=== PATIENT | female | born 1950 | race Caucasian/White ===

== ENCOUNTER 2018-10-11 09:00 | Emergency (ER) | payer OTHER ==
[~2018-10-11] VITALS: Ht 175.3 cm; Wt 68.0 kg
[~2018-10-11 09:00] MED LIST: AMOXICILLIN500 M1 PO; CLONAZEPAM 1 MG1 M1 PO; CYMBALTA30 MG PO; HYDROCODON-ACE1 EAC5 PO; NORCO 5-325 TA1 EACH PO; NORFLEX100 MG PO; PHENERGAN 25 MG25 M1 PO; PREDNISONE 20 M20 MG PO; ULTRAM 50MG TAB50 MG PO; ZYRTEC10 M5 PO; [UNRECOGNIZED DRUG - REMARK]
[2018-10-11] MEDS ORDERED: [UNRECOGNIZED DRUG - OTHER] PO (09:15)
[2018-10-11 09:18] LABS: ABSOLUTE NEUTROPHILS 3.5 thou/uL (1.4-8.2); BASOPHILS 1.4 % (0.0-2.0); EOSINOPHILS 2.4 % (0.0-3.0); HEMATOCRIT 34.7 % (37.0-47.0); HEMOGLOBIN 11.4 gm/dL (12.0-15.0); LYMPHOCYTES 29.8 % (24.0-44.0); MCH 26.6 pg (26.0-34.0); MCV 80.7 fL (80.0-100.0); MONOCYTES 8.3 % (1.0-8.0); PLATELET COUNT 266 thou/uL (150-400); POLYS 58.1 % (36.0-66.0); RDW 15.3 % (10.5-14.5)
[2018-10-11 09:37] LABS: CALCIUM 8.8 mg/dL (8.5-10.1); CREATININE 1.1 mg/dL (0.6-1.0); POTASSIUM 3.6 mmol/L (3.5-5.1)
[2018-10-11 09:42] LABS: ALBUMIN 3.3 g/dL (3.4-5.0); TOTAL BILIRUBIN 0.2 mg/dL (<0.1-1.0); TOTAL PROTEIN 6.4 g/dL (6.4-8.2)
[2018-10-11 11:18] LABS: URINE BILIRUBIN NEGATIVE (Negative); URINE BLOOD NEGATIVE (Negative); URINE CLARITY CLEAR; URINE COLOR YELLOW; URINE GLUCOSE-RANDOM* NEGATIVE (Negative); URINE KETONES NEGATIVE (Negative); URINE LEUKOCYTES-REFLEX 2+ (Negative); URINE NITRITE-REFLEX NEGATIVE (Negative); URINE PROTEIN (DIPSTICK) NEGATIVE (Negative); URINE UROBILINOGEN 0.2 E.U./dl (0.2-1.0)
[2018-10-11 11:28] LABS: SQUAMOUS 0-3 Few /LPF (0-3)
[2018-10-11 11:29] LABS: CASTS None Seen /LPF (None Seen); CRYSTALS None Seen /LPF (None Seen); URINE RBC None Seen /HPF (0-2); URINE WBC-REFLEX 6-15 Few /HPF (0-5)
[2018-10-11 11:30] LABS: BACTERIA-REFLEX 1-9 Few /HPF (None Seen)
[2018-10-11] MEDS ORDERED: KEFLEX500 M1 PO (11:39)
[2018-10-11 12:15] VITALS: BP 136/82
== END 2018-10-11 12:17 | disposition home or self-care (01) ==
LOC: ER 09:00
PROVIDERS: Emergency Medicine
DX: N39.0 Urinary tract infection, site not specified (principal); F32.9 Major depressive disorder, single episode, unspecified; F41.9 Anxiety disorder, unspecified; M19.90 Unspecified osteoarthritis, unspecified site; Z87.01 Personal history of pneumonia (recurrent); Z95.0 Presence of cardiac pacemaker

== ENCOUNTER 2019-02-11 22:19 | Inpatient (IN) | payer OTHER ==
[~2019-02-11] VITALS: Ht 177.8 cm; Wt 63.0 kg
[2019-02-11 22:19] VITALS: BP 126/69
[~2019-02-11 22:19] MED LIST changes: +KEFLEX500 M1 PO; +[UNRECOGNIZED DRUG - OTHER] PO
[2019-02-11 23:34] LABS: ABSOLUTE NEUTROPHILS 6.2 thou/uL (1.4-8.2); BASOPHILS 0.8 % (0.0-2.0); EOSINOPHILS 1.9 % (0.0-3.0); HEMATOCRIT 36.8 % (37.0-47.0); LYMPHOCYTES 19.5 % (24.0-44.0); MCH 26.1 pg (26.0-34.0); MCHC 32.7 g/dL (28.0-37.0); MCV 79.7 fL (80.0-100.0); MONOCYTES 7.8 % (1.0-8.0); PLATELET COUNT 305 thou/uL (150-400); RBC 4.62 mil/uL (4.20-5.00); RDW 14.9 % (10.5-14.5); WBC 10.2 thou/uL (4.0-11.0)
[2019-02-11 23:37] LABS: URINE BILIRUBIN NEGATIVE (Negative); URINE BLOOD NEGATIVE (Negative); URINE CLARITY CLEAR; URINE COLOR YELLOW; URINE GLUCOSE-RANDOM* NEGATIVE (Negative); URINE KETONES NEGATIVE (Negative); URINE NITRITE-REFLEX NEGATIVE (Negative); URINE PROTEIN (DIPSTICK) TRACE (Negative); URINE SPECIFIC GRAVITY 1.025 (1.005-1.035); URINE UROBILINOGEN 0.2 E.U./dl (0.2-1.0)
[2019-02-11 23:38] LABS: ANION GAP 9 mmol/L (7-16); BUN 16 mg/dL (7-18); CALCIUM 9.1 mg/dL (8.5-10.1); CHLORIDE 104 mmol/L (98-107); CO2 27 mmol/L (21-32); CREATININE 1.3 mg/dL (0.6-1.0); GLUCOSE 136 mg/dL (74-106); POTASSIUM 4.1 mmol/L (3.5-5.1); SODIUM 140 mmol/L (136-145)
[2019-02-11 23:43] LABS: URINE LEUKOCYTES-REFLEX 1+ (Negative)
[2019-02-11 23:47] LABS: TROPONIN-I <0.06 ng/mL (<0.06)
[2019-02-11 23:59] LABS: SQUAMOUS 0-3 Few /LPF (0-3)
[2019-02-12] LABS: BACTERIA-REFLEX >30 Many /HPF (None Seen); CRYSTALS None Seen /LPF (None Seen); HYALINE CASTS 0-3 Few /LPF (None Seen); MUCUS 0-3 Light strn/LPF (None Seen); URINE RBC 0-2 Rare /HPF (0-2); WBC CLUMPS Moderate (None Seen)
[2019-02-12 03:25] VITALS: BP 121/67
[2019-02-12] MEDS ORDERED: PROTONIX40 M1 PO (03:33)
[2019-02-12] MEDS ORDERED: RISPERDAL2 MG PO (03:35)
[2019-02-12] MEDS ORDERED: BENZTROPINE MES1 MG PO (03:36)
--- NOTE | 2019-02-12 06:32 | NUR ---
PT ARRIVED TO UNIT APPROX 0320 IN STABLE CONDITION, ADMISSION AND ASSESSMENT COMPLETED. PT ASKED THAT HER DAUGHTER SIGN ALL CONSENTS WHEN SHE COMES IN TODAY; WILL ASK DAY RN TO FOLLOW UP WITH THE DAUGHTER. PT ALERT AND ORIENTED TO SELF, PLACE, AND SITUATION; SLIGHTLY FORGETFUL TO TIME. C/O HEADACHE R/T FALLS, DENIES DIZZINESS OR NAUSEA. DENIES SOB. SKIN INTACT. FALL PRECAUTIONS IN PLACE, SCD'S ON, IV FLUIDS INFUSING. NO OTHER CONCERNS, WILL CONTINUE TO MONITOR.
[2019-02-12 07:44] VITALS: BP 121/72
[2019-02-12 07:47] VITALS: BP 113/78
[2019-02-12 07:49] VITALS: BP 125/70
--- NOTE | 2019-02-12 08:31 | EKG ---
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
--- NOTE | 2019-02-12 10:25 | NUR ---
INITIAL ASSESSMENT: Received consult for placement. SW reviewed chart and spoke with nursing. Pt was admitted from home due to frequent falls/orthostatic hypotension. Therapy ordered to evaluate pt. Will need insurance authorization for SNF placement. ABIODUN met with pt at bedside. Introduced role of SW. Pt is alert/orientated to self and place. Pt states she normally does not use any DME when she ambulates. Pt's dtr had contacted a nursing facility in [place] for placement. Pt is unsure which nursing facility. ABIODUN called pt's dtr, Anne, via phone. Voice mailbox is full. Awaiting therapy evals and discussion with family. SW is following to assist as needed with discharge planning.
[2019-02-12 15:05] VITALS: BP 117/60
--- NOTE | 2019-02-12 17:38 | NUR ---
PT UP WITH PT/OT TO THE BATHROOM AND AROUND THE ROOM. EATING WELL.
[2019-02-12 19:30] VITALS: BP 110/32
[2019-02-13 04:31] VITALS: BP 123/76
--- NOTE | 2019-02-13 06:05 | NUR ---
ASSUMED CARE AT 1900, ASSESSMENT COMPLETED. PT REPORTS HEADACHE TONIGHT, GIVEN BOTH TYLENOL AND IBUPROFEN THIS SHIFT. DENIES NAUSEA, DIZZINESS, OR SOA. FALL PREC IN PLACE, CALLS APPROPRIATELY TO USE BATHROOM. IV FLUIDS INFUSING. NO OTHER CONCERNS, WILL CONTINUE TO MONITOR.
[2019-02-13 06:58] VITALS: BP 130/67
[2019-02-13 07:00] VITALS: BP 108/71
[2019-02-13 07:01] VITALS: BP 136/69
--- NOTE | 2019-02-13 11:14 | 2DMMODE ---
[facility] [place] [place] [address] 2 D/M-MODE ECHOCARDIOGRAM Name: JUAN CORTEZ Room #: 361-P ADM IN M.R.#: [id number] Admission: 02/12/19 Attend Phys: Cee Alfonso MD Discharge: Date of : 46 Date of Service: 02/13/19 1114 Report #: [id number] THIS REPORT FOR: //name// APPROVED REPORT Study performed: 02/13/2019 10:35:10 EXAM: Comprehensive 2D, Doppler, and color-flow Echocardiogram Patient Location: Bedside Room #: 361 Status: routine BSA: 1.79 HR: 71 bpm BP: 136/69 mmHg Rhythm: NSR Other Information Study Quality: Good Indications Hypotension Pacemaker Syncope 2D Dimensions RVDd: 35.63 mm IVSd: 9.32 (7-11mm) LVOT Diam: 22.49 (18-24mm) LVDd: 35.49 mm PWd: 9.14 (7-11mm) Ascending Ao: 29.41 (22-36mm) LVDs: 23.98 (25-40mm) Aortic Root: 29.72 mm IVC: 19.00 mm Volumes Left Atrial Volume (Systole) Single Plane 4CH: 29.39 mL Single Plane 2CH: 39.01 mL LA ESV Index: 24.00 mL/m2 Aortic Valve AoV Peak Russ.: 1.20 m/s AO Peak Gr.: 5.73 mmHg LVOT Max P.34 mmHg LVOT Max V: 0.91 m/s SUSAN Vmax: 3.03 cm2 Mitral Valve E/A Ratio: 1.[address] [facility] [address] [place] [address] 2 D/M-MODE ECHOCARDIOGRAM Name: JUAN CORTEZ Room #: 361-[facility] IN [facility]#: [id number] Admission: 02/12/19 Attend Phys: Cee Alfonso MD Discharge: Date of : 46 Date of Service: 02/13/19 1114 Report #: [id number] MV Decel. Time: 203.90 ms MV E Max Russ.: 0.83 m/s MV A Russ.: 0.57 m/s MV PHT: 59.13 ms IVRT: 92.27 ms Pulmonary Valve PV Peak Russ.: 0.93 m/s PV Peak Gr.: 3.53 mmHg Pulmonary Vein P Vein S: 0.36 m/s P Vein A: 0.29 m/s P Vein D: 0.30 m/s P Vein A Dur.: 133.8 msec P Vein S/D Ratio: 1.20 Tricuspid Valve TR Peak Russ.: 2.45 m/s TR Peak Gr.: 23.98 mmHg PA Pressure: 29.00 mmHg Left Ventricle The left ventricle is normal size. There is normal LV segmental wall motion. There is normal left ventricular wall thickness. Left ventricular systolic function is normal. The left ventricular ejection fraction is within the normal range. LVEF is 60-65%. The left ventricular diastolic function is normal. Right Ventricle The right ventricle is normal size. The right ventricular systolic function is normal. Pacemaker lead is present in the right ventricle. Atria The left atrium size is normal. The right atrium size is normal. Pacemaker lead is present in the right atrium. Aortic Valve The aortic valve is normal in structure. No aortic regurgitation is present. There is no aortic valvular stenosis. Mitral Valve The mitral valve is normal in structure. Trace mitral regurgitation. No evidence of mitral valve stenosis. Tricuspid Valve The tricuspid valve is normal in structure. There is mild tricuspid regurgitation. Estimated PAP 29 mmHg. There is no pulmonary hypertension. [facility] [address] [place] [address] 2 D/M-MODE ECHOCARDIOGRAM Name: JUAN CORTEZ Room #: 361-P ADM IN [facility]#: [id number] Admission: 02/12/19 Attend Phys: Cee Alfonso MD Discharge: Date of : 46 Date of Service: 02/13/19 1114 Report #: [id number] Pulmonic Valve The pulmonary valve is normal in structure. There is no pulmonic valvular regurgitation. Great Vessels The aortic root is normal in size. IVC is normal in size and collapses >50% with inspiration. Pericardium There is no pericardial effusion. <Conclusion> The left ventricle is normal size. LVEF is 60-65%. The left ventricular diastolic function is normal. The right ventricle is normal size. The right ventricular systolic function is normal. Pacemaker lead is present in the right ventricle. The right atrium size is normal. Pacemaker lead is present in the right atrium. The aortic valve is normal in structure. Trace mitral regurgitation. There is mild tricuspid regurgitation. Estimated PAP 29 mmHg. There is no pulmonary hypertension. The aortic root is normal in size. There is no pericardial effusion. <ELECTRONICALLY SIGNED> By: Isma Smith MD, FACC 02/13/19 1114 1114 111 Isma Smith MD, FACC /INF
--- NOTE | 2019-02-13 14:21 | NUR ---
ABIODUN reviewed chart and spoke with nursing and attending physician. Pt is progressing towards goals for discharge. Recommendation made for pt to go to post-acute care. ABIODUN met with pt at bedside to discuss SNF placement. Pt states that she and her dtr have chosen a facility. SW named the four nursing facilities in [place]. Pt is unable to choose which facility. ABIODUN spoke with pt's dtr, Anne, via phone who states they have contacted [facility] for LTC placement. ABIODUN discussed that if [facility] does not have a bed available, would she consider alternate placement in [place]. Pt's dtr agreeable. ABIODUN faxed clinical info to [facility] and spoke with She in admissions, who states she would review info. She states she is unsure if she would accept pt LTC without a Medicaid application being submitted. She will review for possible SNF placement. Awaiting call back at this time. ABIODUN is following to assist as needed with discharge planning.
[2019-02-13 15:41] VITALS: BP 122/65
[2019-02-13 19:50] VITALS: BP 119/63
[2019-02-14] VITALS (7 sets, daily range): BP systolic 108–146; BP diastolic 62–93
--- NOTE | 2019-02-14 06:07 | NUR ---
PATIENT IS ALERT TO TIME AND SELF. PATIENT DENEIS PAIN. PATIENTS LBM WAS THE 11TH. PATIENT IS NSR ON TELE. PATIENT HAS TREMORS. PATIENT HAS TRACE LOWER EDEMA. PATIENT IS PENDING [facility] SENIOR LIVING. CM IS WORKING ON SKILLED PLACEMENT. PATIENT IS RESTING COMFORTABLY IN BED. WCM. PATIENT IS PROGRESSING TO GOALS. UTI IMPROVE WITH ANTIBIOTICS.
--- NOTE | 2019-02-14 13:50 | NUR ---
FALL PRECAUTIONS IN PLACE. PATIENT WILL WAIT FOR STAFF TO ASSIST TO COMMODE. PATIENT FORGETFUL OF HER ABILITY TO AMBULATE AND WILL OFTEN REQUEST TO WALK TO BATHROOM INSTEAD OF COMMODE. UNSTEADY TO WALK TO BATHROOM, USES COMMODE FOR BATHROOM PURPOSES. PATIENT UP TO CHAIR FOR APPROX 3HRS THIS SHIFT. REQUESTED TO RETURN TO BED TO REST AFTER LINENS CHANGED. REFUSED BATH THIS SHIFT. AWAITING POTENTIAL DISCHARGE. DENIES ANY QUESTIONS OR CONCERNS AT THIS TIME. PATIENT PROGRESSING TOWARDS GOALS FOR DISCHARGE.
--- NOTE | 2019-02-14 14:59 | NUR ---
ABIODUN reviewed chart and spoke with nursing and attending physician. Pt is progressing towards goals for discharge. ABIODUN spoke with Marilyn in admissions at [facility], who state they are not able to accept pt. ABIODUN spoke with Shana at [facility], who states they are reviewing pt's info. Need additional therapy notes at this time to submit to pt's insurance. Questions regarding pt's orthostatic hypotension and medications. Will fax additional therapy notes when available. ABIODUN spoke with pt's dtr, Anne, via phone to provide update. ABIODUN is following to assist as needed with discharge planning.
--- NOTE | 2019-02-15 03:26 | NUR ---
patient is alert to self. patient is room air. patient is pending discharge to senior living awaiting acceptance from senior living. patient has stenosis of carotid arteries. patient is on minodrine for bp. blood pressure has been stable. patient is resting comfortably in bed. patient is progressing to goals. wcm.
[2019-02-15 04:02] VITALS: BP 114/76
[2019-02-15 06:02] VITALS: BP 131/77
[2019-02-15 07:17] VITALS: BP 134/84
--- NOTE | 2019-02-15 14:44 | NUR ---
ABIODUN reviewed chart and spoke with nursing and attending physician. Pt is progressing towards goals for discharge. Pt to have pacemaker interrogated today. ABIODUN faxed clinical and therapy updates to [facility] for review and spoke with Tamia in admissions. Will need insurance authorization. ABIODUN attempted to leave message for pt's dtrAnne to provide update. No answer or option to leave voice message. No weekend discharge anticipated. ABIODUN updated pt's nurse and attending physician's CIRCLE BEVELER. ABIODUN is following to assist as needed with discharge planning.
[2019-02-15 16:25] VITALS: BP 137/77
--- NOTE | 2019-02-15 16:27 | NUR ---
[employer] WAS HERE AND INTEROGATED PACEMAKER.
--- NOTE | 2019-02-15 16:28 | NUR ---
MATTI SAYS WE ARE STILL WAITING ON INSURANCE AUTHORIZATION. UPDATED DAUGHTER MAIRA WHEN SHE CALLED. SHE STATES WE SHOULD CALL [phone] TO GET IN TOUCH WITH HER IF WE NEED HER.
[2019-02-15 19:30] VITALS: BP 116/61
--- NOTE | 2019-02-16 03:02 | NUR ---
patient is alert oriented tonight. patient had a pacemaker check yesterday. patient is nsr on tele. patient is up times one with a walker. patients lbm was the 11th. stool softener will be given in am. patient denies pain. patient has a flat affect. shuffled gait. and hx on tremors... patient is resting comfortably in bed. wcm. patient is progressing to goals.
[2019-02-16 03:58] VITALS: BP 120/75
[2019-02-16 07:23] VITALS: BP 143/75
[2019-02-16 12:27] VITALS: BP 126/77
[2019-02-16 16:04] VITALS: BP 129/69
[2019-02-16 19:11] VITALS: BP 98/59
--- NOTE | 2019-02-16 20:14 | NUR ---
PATIENT ALERT AND ORIENTED AND COOPERATIVE WITH PLAN OF CARE. DRAIN FUNCTIONING WITH SEROSANGINOUS FLUID AND STRINGY TISSUE. PATIENT STATES SHE IS IN LAST SEMESTER OF IN LOCAL NURSING S[employer]OL. PATIENT ASKED FOR IV MORPHINE FOR ABDOMINAL PAIN ONCE TODAY. PATIENT UP TO BATHROOM WITH SBA. SEVERAL FAMILY MEMBERS AT BEDSIDE THROUGHOUT THE AFTERNOON.
--- NOTE | 2019-02-16 20:35 | NUR ---
PATIENT ALERT AND ORIENTED WITH POOR APPETITE. SHE NEEDS ENCOURAGEMENT TO EAT AND DRINK. SHE STATES SHES NOT A MORNING PERSON AND DOESN'T USUALLY EAT BREAKFAST. PATIENT IS ABLE TO WALK TO BATHROOM WITH WALKER AND MIN ASSIST. PATIENT REFUSED TO SIT IN RECLINER CHAIR AFTER SEVERAL OFFERS. SHE ATTEMPTED TO CALL DAUGHTER ON THE PHONE BUT WAS UNABLE TO REACH DAUGHTER.
[2019-02-17 04:02] VITALS: BP 156/77
--- NOTE | 2019-02-17 06:35 | NUR ---
PT A/0X4, WITH FLAT EFFECT. FOLLOWING POC WITH IVPB ANTIBIOTICS. ONLY COMPLAINT WAS TO CLOSE PT ROOM DOOR. FALL PRECAUTIONS IN PLACE. PT AMBULATES X1 WITH WALKER. EVENING BP MEDICATION WAS W/H DUE TO SOFT BP'S. THIS AM PRESSURES ARE BACK IN NORMAL RANGE AND WILL GIVE 0700 DOSE OF MIDODRINE. HOURLY ROUNDING.
[2019-02-17 07:41] VITALS: BP 109/71
[2019-02-17 15:25] VITALS: BP 153/82
--- NOTE | 2019-02-17 18:19 | NUR ---
ASSUMED CARE AT SHIFT CHANGE, ALERT AND ORIENTED X4 AND FRGETFUL. DENIES ANY DISCOMFORT, VSS AM, AND BP @ 152/82 AT 1615. PROGRESSING TOWARD GOALS. PATIENT DAUGHTER CALLED REQUESTED PER PATIENT, AND CALL RETURN RECIEVED. PLAN DISCHARGE PATIENT TOMORROW.
[2019-02-17 20:30] VITALS: BP 130/83
[2019-02-18 04:55] VITALS: BP 132/77
[2019-02-18 07:52] VITALS: BP 153/73
--- NOTE | 2019-02-18 11:57 | NUR ---
[facility] can't take patient, dp sending referral to [facility] fax [phone]. Asked to if they can accept to please submit for authorization. Patient to discharge today from hospital. Once fax confirmation comes through, dp will call facility.
--- NOTE | 2019-02-18 13:56 | NUR ---
ABIODUN received voice message from Aranza at [facility], who state they are unable to accept pt due to possible issues with her Medicaid application. Pt's dtr had told them that pt will need chcf care placement. Pt's family is unable to provide care for pt at home. ABIODUN spoke with pt's dtr, Anne at a new phone number ([phone]) to provide update. Pt's dtr requests referrals to [facility] in [place] and additional facilities: [facility] [place], [facility] and [facility]. operations planner to fax. ABIODUN updated nursing and attending physician. ABIODUN also reached back out to [facility] regarding Medicaid application, as pt's dtr states that pt may have completed one or started one while at [facility]. ABIODUN is following to assist as needed with discharge planning.
[2019-02-18 16:29] VITALS: BP 139/75
[2019-02-18 19:14] VITALS: BP 138/79
--- NOTE | 2019-02-18 19:26 | NUR ---
PATIENT HAS SLEPT MOST OF THE DAY. SHE HAS NOT VOICED ANY COMPLAIN OF PAIN. SHE IS PLEASANT. CONT TO PROGRESS TOWARDS DISCHARGE GOALS. WILL CONT WITH PLAN OF CARE.
[2019-02-19 03:59] VITALS: BP 144/94
--- NOTE | 2019-02-19 04:07 | NUR ---
resting quietly tonight. she is cooperative and easy to redirect. continues on iv antibiotics. did complain of some mild head and neck aching. tylenol effective for pain control. careplan reviewed. progressing toward discharge goals.
[2019-02-19 07:13] VITALS: BP 135/79
--- NOTE | 2019-02-19 11:37 | NUR ---
Nutrition: pt admitted with UTI, orthostatic hypotension, falls and seen due to LOS. Pt feels she has lost some weight but unsure of UBW. Per hx, 10# decline since october, 6%, moderate. Some facial wasting present. Geriatric WELL DIGGER documented malnutrition-RD agrees. PO intake documented as ~50% of meals and pt reports decreased appetite. Likes the meal choices. Agreeable to Ensure BID. Has discharge orders for when facility is found.
--- NOTE | 2019-02-19 14:10 | NUR ---
DISCHARGE NOTE: ABIODUN reviewed chart and spoke with nursing and attending physician. Pt is medically stable for discharge to post-acute care today. [facility] [place] are unable to accept pt. ABIODUN received call from Fabienne, household coordinator at [facility] stating they are able to accept pt. [facility] liaison onsite to see pt yesterday afternoon and this morning. Insurance authorization obtained and they can admit pt today. van transportation scheduled for 1730 per facility's arrangements with [facility]. ABIODUN faxed discharge orders/summary to facility and confirmed info was received. ABIODUN spoke with pt's dtr, Anne, via phone to provide update. Anne is aware and in agreement with discharge plan. Chart copy requested. Nursing to call report. No additional SW needs identified at this time, but is available to assist as needed with discharge planning.
== END 2019-02-19 16:36 | DRG 74 ==
LOC: ER 22:19 → EROBS 02-12 01:00 → 3W 02-12 01:00
PROVIDERS: Emergency Medicine; ADMIT Internal Medicine
PROC: 4B02XSZ Measurement of Cardiac Pacemaker, External Approach (ICD-10-PCS; principal; 2019-02-15)
DX: G90.8 Other disorders of autonomic nervous system (principal); N39.0 Urinary tract infection, site not specified; N17.9 Acute kidney failure, unspecified; E46 Unspecified protein-calorie malnutrition; Z68.1 Body mass index [BMI] 19.9 or less, adult; I95.1 Orthostatic hypotension; F32.9 Major depressive disorder, single episode, unspecified; F41.9 Anxiety disorder, unspecified; F03.90 Unspecified dementia, unspecified severity, without behavioral disturbance, psychotic disturbance, mood disturbance, and anxiety; R29.6 Repeated falls; K21.9 Gastro-esophageal reflux disease without esophagitis; M54.9 Dorsalgia, unspecified; M19.90 Unspecified osteoarthritis, unspecified site; Z87.01 Personal history of pneumonia (recurrent); Z95.0 Presence of cardiac pacemaker; Z79.899 Other long term (current) drug therapy
CPT/HCPCS: 10879

== ENCOUNTER 2021-02-01 16:53 | Emergency (ER) | payer MEDICARE ==
[~2021-02-01] VITALS: Ht 177.8 cm; Wt 83.0 kg
[~2021-02-01 16:53] MED LIST changes: +BENZTROPINE MES1 MG PO; +PROTONIX40 M1 PO; +RISPERDAL2 MG PO
[2021-02-01 17:30] VITALS: BP 131/65
== END 2021-02-01 17:45 ==
LOC: ER 16:53
DX: F99 Mental disorder, not otherwise specified (principal); F41.9 Anxiety disorder, unspecified; Z20.822 Contact with and (suspected) exposure to COVID-19; Z79.899 Other long term (current) drug therapy

== ENCOUNTER 2021-02-01 18:17 | Inpatient (IN) | payer MEDICARE ==
[~2021-02-01] VITALS: Ht 177.8 cm; Wt 83.9 kg
--- NOTE | 2021-02-01 19:37 | NUR ---
193 PT ARRIVED FROM [facility] AT 1750. PT ARRIVED VIA WHEELCHAIR. PT PLEASANT. PT BELONGINGS IN NURSES STATION. PT GIVEN FOOD. PT STATED THAT SHE HAS NKDA. PT STATED THAT SHE HAS EXTREME ANXIETY. PT ORIENTED X 4. SKIN CLEAR, NO WOUNDS NOTED, NO EDEMA. DENIES si/hi/ah/vh at this time. pt denies pain. PT LUNGS CLEAR. PT ABDOMEN SOFT AND ACTIVE BOWEL SOUNDS. FALL CONSENT AND CONSENT TO TREAT SIGNED. PT VS T 96.6, R 18, BP 119/73, P 86, 02 SAT 99. PT AMBULATES WITHOUT AST. PT CONT OF BOWEL AND BLADDER. WILL CONT TO MONITOR PT FOR BEHAVIOR AND SAFETY.
[2021-02-01 20:10] VITALS: BP 132/66
--- NOTE | 2021-02-02 05:23 | NUR ---
PATIENT CARE WAS RESUMED AT 1900.SHE IS ALERT AND ORIENTED.ABLE TO VERBALISE HER NEEDS. SHE SPOKE TO HER DAUGHTER YESTERDAY AND REFUSES TO GIVE UP THE PHONE AFTER AN LONG TOME ON THE PHONE.SHE THREW THE PHONE AT THE NURSE."THIS IS THE ONLY PERSON I CARE ABOUT AND YOU ARE NOT ALLOWING ME TALK TO HER" SHE TOOK HER MEDS WHOLE, AND LUNGS ARE CLEAR BS ACTIVE X4 QUADS. [id number] CHECK ONGOING. SHE DENIES SI/AVH/ HI. BED IS LOW, LOCKED CONTINUE CARE AND MONITOR.SHE IS SLEPT GOOD.
[2021-02-02 06:28] LABS: CHOLESTEROL 266 mg/dL (<200); HDL CHOLESTEROL 59 mg/dL (>40); LDL CHOLESTEROL 173 mg/dL (<100); TC:HDL 4.5 Ratio (Not establshd); TRIGLYCERIDE 171 mg/dL (<150); VLDL 34 mg/dL (<40)
[2021-02-02 06:39] LABS: SERUM ASSESSMENT Clear
[2021-02-02 08:26] LABS: ABSOLUTE NEUTROPHILS 4.7 thou/uL (1.4-8.2); BASOPHILS 0.9 % (0.0-2.0); EOSINOPHILS 3.6 % (0.0-3.0); HEMATOCRIT 35.6 % (37.0-47.0); HEMOGLOBIN 11.5 gm/dL (12.0-15.0); LYMPHOCYTES 25.3 % (24.0-44.0); MCH 25.4 pg (26.0-34.0); MCHC 32.3 g/dL (28.0-37.0); MCV 78.7 fL (80.0-100.0); MONOCYTES 9.8 % (1.0-8.0); PLATELET COUNT 354 thou/uL (150-400); POLYS 60.4 % (36.0-66.0); RBC 4.52 mil/uL (4.20-5.00); RDW 16.6 % (10.5-14.5); WBC 7.8 thou/uL (4.0-11.0)
[2021-02-02 08:55] LABS: MAGNESIUM 2.4 mg/dL (1.8-2.4); POTASSIUM 4.4 mmol/L (3.5-5.1)
[2021-02-02 09:28] VITALS: BP 132/73
--- NOTE | 2021-02-02 15:52 | NUR ---
Assumed pt care at 0700. Pt was in her room awake and Alert. uncooperative with assessments. refused care and assessments. Pt was argumentative, rude, irritable, cursing, agitated at staffs. pt refused to come out for breakfast. came out at 0915 for group, loud and yelling at staff over her meds. pt denied taking any meds prior to admission. try redirecting patient, she went back to her room and refused to come out and participate, she stated that the patients on the unit are too old for her, and don't belong here, Dr Lyle was notified of patient behavior, security also came for assistance, patient continue to be very disrespectful to staff, refused medication, choose and pick what meds she wants, she denies si/hi, will continue to monitor patient. Pt was very condescending to other pts at every minute. Pt was redirected, pt was angry at staff and was pointing her finger to staff face. Pt requested for anxiety meds. Business Line Controller offered pt PRN 0.5mg clonazepam. Pt scratched and snatched meds off writers hands. Business Line Controller asked pt her reason for doing that. Pt STATED because you did not give me 2.5mg. Business Line Controller educated pt about her meds. PT would not cooperate or listen, pt continue to curse, insult writer producer. AT this pt is in the day room eating dinner. Will continue to monitor.
--- NOTE | 2021-02-02 16:34 | NUR ---
ABIODUN attempted to meet with the Pt to complete assessment. Pt became argumentative, yelling, and screaming. Pt was unable to be redirected or calmed. ABIODUN had to end session. ABIODUN and Dr. Hyatt were able to talk to the Pt's daughter, Anne [phone], by phone. Anne informed the Pt was living in a motel in [place]. Pt was living at the [place] until August 2020. Anne was not sure why the Pt had to leave the [place]. Prior to the [place] the Pt lived at [facility]. Pt currently has issues with caring for herself. Pt not particpating in otpt psychiatric services at this time. Pt unable to maintain and properly take her medications correctly. Pt won't allow housekeeping to clean the room at her motel. Anne states the room was "very unsanitary". Anne stated the Pt is estranged from her other 2 daughters and her two brothers. Anne confirmed the Pt does not have a DPOA. ABIODUN and Dr. Hyatt educated on DPOA and guardianship. Anne stated she was trying to assist the Pt in finding a new mcfp however was have issues due to the Pt's behaviors and not haveing a DPOA. Anne had no further questions or concerns at this time. ABIODUN will continue to follow.
[2021-02-02 20:01] VITALS: BP 120/58
[2021-02-03 02:06] LABS: GLYCOHEMOGLOBIN (HGB A1C) 5.6 % (4.8-5.6)
--- NOTE | 2021-02-03 04:53 | NUR ---
PATIENT CARE WAS RESUMED AT 19. SHE WAS IN THE ROOM AND CALM IN BED. ABLE TO VERBALIZE HER NEED. SHE DENIES PAINS/SI/AVH/HI. SHE IS VERY UPSET AT THIS TIME FOR UNKNOWN REASON.BS ACTIVE X4 QUADS AND IS SOFT NONE TENDER. SHE TOOK HER MEDS WHOLE AND SHE CONTINUED TO REST IN BED. Q 12MINUTES CHECK ARE ONGING
[2021-02-03 10:33] VITALS: BP 128/65
--- NOTE | 2021-02-03 10:43 | NUR ---
Assess due to new admit to [facility] for dementia. Pt with good appetite eating 90-100% of first few meals. Possible wt gain >35 lb from past admit in 2019. Note chol 266, and LDL 173-addressed with Dr Lyle and he would like to hold adding further medications at this time due to pt current behaviors. Low nutrition risk.
--- NOTE | 2021-02-03 13:52 | NUR ---
PATIENT WAS IN BED THIS MORNING WHEN CARE ASSUMED, REFUSES TO GET OUT OF BED FOR BREAKFAST, OR PARTICIPATE IN GROUP THERAPY. PATIENT LATER AGREED TO GET OUT OF BED PER DR'S INSTRUCTIONS. BREAKFAST OFFERED, SHE HAD JUST A FEW BITES, AND ATE FRUITS. PATIENT INITIALLY CHOOSE NOT TO TAKE MORNING MEDICATIONS, BUT AFTER EDUCATING PATIENT ON THE NEED FOR HER TO BE MED COMPLIANT SO TO GET WELL, AND BE DISCHARGED ON TIME, SHE TOOK THE MEDS. PATIENT CONSUMED 75% OF LUNCH. PATIENT DENIES SUICIDAL/HOMICIDAL IDEATION, SHE STATES SHE IS NOT DEPRESSED, "AM ANGRY, BECAUSE THE WON'T GIVE ME CLONAZEPAM". PATIENT HAS BEEN CALM, COOPERATIVE SINCE AFTER MORNING MEDICATION. PATIENT IS ON ROOM LOCK-OUT 9-5 FOR GROUPS, AND MEALS. NO SIGN OF ACUTE DISTRESS NOTED AT THIS TIME, WILL CONTINUE TO ENCOURAGE MED COMPLIANT, GROUP PARTICIPATION, AND MONITOR FOR SAFETY.
[2021-02-03 19:29] VITALS: BP 133/71
[2021-02-03 19:30] VITALS: BP 133/71
[2021-02-03 20:30] VITALS: BP 133/71
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
[2021-02-04 11:04] VITALS: BP 111/56
--- NOTE | 2021-02-04 15:07 | NUR ---
Alert and orientated to name and place this AM. Refusing to get out of bed. Got out of bed after 3rd staff member approached but was mocking staff attempts to redirect pts in dining room. Repeatedly stating, "You are really trying to make me dislike this place. Denies SI/HI. Wanting to go to room this AM during group, then stated she had SHIN and wanted Tramadol and then when offered Tylenol wanted 3 tablets. Reported good relief with PRN dose of Tylenol. Discussed with Dr. Lyle. Breath sounds clear. Reg HR auscultated. Color pink with brisk capillary refill and palpable peripheral pulses. Active bowel sounds over soft, rounded abdomen. Independent with voiding. Ambulates with reg, steady gait.
[2021-02-04 20:04] VITALS: BP 142/60
--- NOTE | 2021-02-05 03:32 | NUR ---
ASSUMED CARE AT 1900, PATIENT IN ROOM AWAKE AND ALERT AT THAT TIME. TOOK MEDS WHOLE WITHOUT DIFFICULTY. STATES "I DON'T DO WELL IN THE MORNINGS. I DO MUCH BETTER IN THE EVENINGS. THEY CAME IN HERE AND PULLED THE COVERS OFF ME AND MADE ME GET UP AND EAT BREAKFAST AND GO TO GROUP, BUT I WAS STILL VERY TIRED". PATIENT C/O BACK PAIN. WAS OFFERRED MUSCLE RUB OINTMNET, WHICH SHE DECLINED. C/O OF NOT BEING ABLE TO SLEEP AT APPROX 2230. THIS FRUIT FARMER CALLED DR. POMPA AND RECIEVED AN ORDER FOR ONETIME TRAZODONE 50MG FOR SLEEP WITH A REPEAT DOSE AVAILABLE IF THE FIRST DOSE WAS INEFFECTIVE AFTER 40 MINUTES. A FEW MINUTES AFTER ADMINISTERING MED, PATIENT CAME BACK OUT TO NS TO SAY TRAZODONE DID NOT WORK FOR HER, AND SHE HAD "OVERHEARD ANOTHER PATIENT GETTING CLONAZEPAM" AND COULD SHE GET THAT. THIS EXPLAINED TO PATIENT THAT WE WOULD WAIT AND SEE IF THE TRAZODONE WAS EFFECTIVE BEFORE WE EXPLORED OTHER OPTIONS. PATIENT SEEMED FRUSTRATED WITH THIS REPLY, BUT DID GO LAY DOWN. SHE IS CURRENTLY LYING IN BED WITH EYES CLOSED. NO S/S OF DISTRESS/DISCOMFORT.
[2021-02-05 09:22] VITALS: BP 128/62
--- NOTE | 2021-02-05 15:47 | NUR ---
Very resistant to getting out of bed this AM calling nurse "bitch" and using profanity. Repeatedly stating she has done her hours. Approximately 2 hrs later she apologized after stating "Go away, I don't like you." States she has SHIN and low back pain 7/10 without relief from Tylenol. Sleeping after taking Tramadol. Apologized for behavior later in AM. Now very interactive with peers and ambulating around unit without s/o distress. Alert and orientated x3, denies SI/HI. Breath sounds clear. Reg HR auscultated. Color pink with brisk capillary refill and palpable peripheral pulses. Independent with voiding. Active bowel sounds over soft, rounded abdomen. Ambulates with regular, steady gait.
--- NOTE | 2021-02-05 16:26 | NUR ---
SW attempted to contact Pt's daughter Anne concerning the DPOA documents. SW was unable to leave a voicemail due to the voicemail not be set up. ABIODUN attempted to complete the DPOA document. Liudmila stated that she had a [place] ID in her wallet. SW looked in the Pt's locker and did not locate the Pt's ID to complete the DPOA document. ABIODUN will follow up.
--- NOTE | 2021-02-05 16:30 | NUR ---
Sw [facility] SW will follow up
[2021-02-05 19:32] VITALS: BP 133/65
--- NOTE | 2021-02-06 01:43 | NUR ---
RESUMED CARE AT 1900, PATIENT SITTING AND VISITING WITH OTHER FEMALE PEERS IN DAY AREA. NO S/S OF DISTRESS OR DISCOMFORT. PLEASANT AND CALM, COMPLIANT WITH MEDICATIONS. C/O 01/09 LOW BACK PAIN, GIVEN TRAMADOL, LATER C/O HEADACHE 02/09 AND GIVEN TYLENOL. PATIENT CURRENTLY RESTING QUIETLY IN BED WITH EYES CLOSED. Q12 MINUTE SAFETY CHECKS CONTINUE.
[2021-02-06 09:09] VITALS: BP 118/45
--- NOTE | 2021-02-06 09:19 | NUR ---
0700 Stated in report that pt stated she had a SHIN and was requesting Tylenol. Went to assess pt and she stated it was too early in AM and she wanted to stay in bed. Stated SHIN was gone and she just wanted to sleep. Refused assessment and refused to answer orientation questions. Repeatedly stating that she was told they did not need to attend groups or come out of room on weekends. Told her that she would have to get up for breakfast at 0800. 0800 Refused to get out of bed despite multiple requests. States it is against the law to force someone out of bed. Accusing RN of being on powertrip and repeatedly changing subject. Using religiousity to convince RN of leaving her in bed. Reminded repeatedly that she was on room lockout for meals and groups. Did get up after stating next step was for us to call security to escort her to dining room. Also manipulating statements from previous day. Took meds without difficulty. When RN left her table and moved across dining room to another pt she stated across room "Medtech, I have a headache." Then stated to group "She is going to just ignore me." SALES ACCOUNT SPECIALIST stated, "I think she didn't hear you." I stated, "I did hear her but she is being inappropriate and I will talk to her after I finish here." She then followed with multiple accusations of me being on a power trip. She then came over to pt I was trying to assist and got in our space trying to look at my name tag. I asked her to step away and she again started accusing me of being on "power trip and being generally rude. About 10 min later I asked her to step to the side of room. She complied but continued to be rude. I stated my full name to her and that I was a RN and she stated that she knew that and that continued to challenge. She then stated sarcastically, "Why am I over here?" I said because you said you had a headache to which she responded, "It's gone now." She stated that she was going to report me. I told her she was being manipulative and she walked away.
--- NOTE | 2021-02-06 16:46 | NUR ---
SW attempted to contact pt's daughter at number listed in file ([phone]). A voice message was left. SW received a call back stating the number is incorrect. SW contacted pt.'s daughter at number listed on incomplete DPOA form ([phone]). ABIODUN unable to leave a message as the voice mailbox had not been set up. The SW called back later in the day and was able to speak to the pt's daughter, Anne Gloria. Anne would like to be the DPOA for the pt. Anne's address is [address] [place] [address]. Anne expressed concern about not having a placement for the pt. The SW, Nadiya Rocha, has sent referrals to agencies. The SW explained to Anne that she could visit the places to determine which one she feels would be the best fit for the pt. Anne reported the pt's belongings has been removed from the prior residence, the hotel. The SW spoke to the pt to confirm that the pt was still wanting her daughter to be the DPOA. The pt confirmed that she wanted her daughter to be the DPOA.
[2021-02-06 19:47] VITALS: BP 129/64
--- NOTE | 2021-02-06 21:47 | NUR ---
PATIENT CARE RESUMED AT 1900. PATIENT A&OX 4. AMBULATES UNASSISTED WITH STEADY GAIT. INDEPENDENT WITH CARES. PATIENT SPOKE TO HER DAUGHTER, MAIRA, ON THE PHONE FOR APPROX 30 MINUTES. PATIENT C/O ANXIETY AND LOW BACK PAIN. NEW ORDER FOR PRN HYDROXYZINE ADMINISTERED, ALONG WITH PRN TYLENOL. PATIENT SKEPTICAL THAT THE HYDROXYZINE WILL WORK, STATES SHE WILL JUST GO TO HER PRIMARY DOCTOR AND "HE WILL TAKE CARE OF ME". MAKES SEVERAL COMMENTS ABOUT HAVING BEEN GIVEN CLONAZEPAM PREVIOUSLY AND IT BEING "FAST ACTING" AND "I WAS GIVEN XANAX A LONG TIME AGO WELL". Q12 MINUTE SAFETY CHECKS CONTINUE.
[2021-02-07 09:19] VITALS: BP 134/69
--- NOTE | 2021-02-07 16:07 | NUR ---
SW met with pt. regarding DPOA. The pt. had stated the previous day that she wanted to talk to her daughter, Anne Gloria, about the DPOA. Today, the SW asked the pt. if she had spoken to her daughter. The pt. did speak to her daughter. The pt. expressed concern about giving her daughter power of sports attorney. The pt. does not want her daughter to be able to force her into a half-way. The SW explained to the pt. that the DPOA is only in effect when the pt. is unable to make the healthcare decisions. The pt. stated she wanted to review and think about the DPOA more before signing. The pt. expressed feelings of being scared and overwhelmed as she does not have a place to stay after discharge. She is also upset that she lost of her personal belongings at the hotel. It is the the hope of the pt. that she will be able to live with her daughter for a couple of weeks until placement is secured.
--- NOTE | 2021-02-07 17:48 | NUR ---
DID GET UP AND OUT OF BED FOR BREAKFAST WITHOUT RESITANCE -COMPLIENT WITH TAKING MEDS,EATING,AND VISITING WITH FEMALE PEER AT BREAKFAST TABLE-ATTITUDE AND DEMEANER CHANGED IMMEDIATLY UPON BEING ASKED TO PARTICIPATE IN GROUP-INSISTING SHE COUDLN'T,STATING"TOO TIRED" "NOT A MORNING PERSON" ETC. DID STAY IN DAYROOM FOR ENTIRITY OF GROUP BUT WAS NOT ENGAGED IN DISCUSSION. DAY PROGRESSES NOTED TO BE MORE SOCIAL AND ANIMATED.
[2021-02-07 19:31] VITALS: BP 124/96
[2021-02-07 20:15] VITALS: BP 124/96
--- NOTE | 2021-02-08 00:38 | NUR ---
PATIENT SAT AT A TABLE IN DINING ROOM THIS EVENING WITH 3 OTHER PATIENTS. SHE CONVERSED WITH THEM AND WAS CALM AND APPEARED HAPPY. SHE HAD MADE UP HER MEAL ORDER FOR THE NEXT DAY. PATIENT ASKED TO USE THE PHONE TO CALL HER DAUGHTER BUT WAS UNABLE TO REACH HER BY PHONE. PATIENT CAME TO NURSE STATION BEFORE BED AND STATES SHE WAS FEELING REALLY ANXIOUS AND THAT THE ANXIETY WAS CAUSING HER BONES TO ACHE IN HER WHOLE BODY. SHE REQUESTED MED FOR ANXIETY. I OFFERED HER TRAMADOL ALSO WHICH SHE DID SAY YES TOO. PT TOOK HER PRN HYDROXIZINE FOR ANXIETY AND WENT TO BED. SHE HAS BEEN CALM AND COOPERATIVE. DENIES SI/HI/AVH. SHE IS A/0X2-3. WILL CONTINUE TO MONITOR.
[2021-02-08 05:48] LABS: % SATURATION 16 % (20-39); IRON 40 ug/dL (50-170); TIBC 252 ug/dL (250-450)
[2021-02-08 09:42] VITALS: BP 111/61
--- NOTE | 2021-02-08 10:35 | NUR ---
Assumed patient care 0700, patient in bed sleeping refusing to get up for breakfast, she is on room locked out but she finally got up, ate, attend group and goes back to bed in between groups and meals, she is pleasant and friendly today, alert and oriented x4, she took her medication whole, active bowel sound, lungs clear. Patient ambulate with a steady gait no device needed. she denies si/hi. the plan is to be discharge tomorrow.
--- NOTE | 2021-02-08 13:26 | NUR ---
RT Progress Note- Liudmila's presence in the milieu and recreation therapy groups has improved throughout the week. Liudmila is increasingly accepting of staff and peer interaction, and has improved in mood. While present in group, however, she picks and chooses when she will participate. Liudmila has structured free time on the unit by coloring. RT staff will encourage further engagement and progress towards goals.
--- NOTE | 2021-02-08 13:35 | NUR ---
Pt was accepted at [facility]. [facility] Pt was able to ask questions about the facility. Pt shared her concern of the cost. Pt is able to afford the placement however has hesitations about using her whole check. SW talked to Pt about her concerns and educated Pt on her need for a supportive environment that can meet her needs. Pt stated she wanted to speak with her daughter concerning the matter. Pt is scheduled for discharge on 02/09/2021.
--- NOTE | 2021-02-08 16:49 | NUR ---
ABIODUN talked to Pt concerning her decision about [facility] . Pt stated " I don't think It will work because I would have to share a bathroom and eat dinner with the other people there". Pt then stated " I have asked my daughter if I can stay with her but she has to talk to her boyfriend about it". ABIODUN asked Liudmila what was her plan other than her daughter home. Liudmila stated she was going to go back to a motel but did not know which motel. Liudmila stated her daughter would make her a reservation at a motel but did not know which one. ABIODUN did call Anne concerning the matter. Anne informed holly ortega did not have the rom for her mother to come to her home. Also that she has not been able to make a motel resevation for the Pt. ABIODUN informed [facility] and the services they offer to residence. Anne requested to speak with the Pt and SW together. ABIODUN was able to go to the Pt's room and participate in a phone call with Anne and the Pt. The phone call was ended due to Pt and Anne arguing and Pt becoming upset. ABIODUN will continue to follow.
[2021-02-08 20:10] VITALS: BP 143/74
--- NOTE | 2021-02-09 02:26 | NUR ---
PATIENT HAS STAYED IN ROOM TONIGHT. SHE STATES THAT HER ANXIETY IS CAUSING LOW BACK PAIN AND HIP PAIN. SHE SPOKE TO HER DAUGHTER ON THE PHONE TONIGHT. SHE IS ANXIOUS ABOUT DISCHARGING TOMORROW BECAUSE SHE KNOWS SHE MAY RUN INTO COMPLICATIONS WITH THE HOTEL SHE WAS STAYING IN AND WANTING TO GO BACK TO. HER DAUGHTER IS WANTING PATIENT TO GO TO A HALF-WAY. ORDER RECEIVED FOR ATIVAN 0.5MG PO ONE TIME FOR ANXIETY. SHE RESPONDED WELL TO IT AND STATED THAT IT ALSO DECREASED HER PAIN. PATIENT HAS BEEN RESTING WELL TONIGHT AND BEEN CALM AND COMPLIANT. ROUTINE ROUNDS TO ASSESS SAFETY AND STATUS. DENIES SI/HI/AVH. PATIENT HAS BEEN PLEASANT AND COOPERATIVE. CONTINUING TO MONITOR.
[2021-02-09] MEDS ORDERED: IRON325 PO (08:43)
[2021-02-09] MEDS ORDERED: LIPITOR40 MG PO (08:44)
[2021-02-09] MEDS ORDERED: NEURONTIN 300M300 M2 PO (08:44)
[2021-02-09] MEDS ORDERED: CYMBALTA30 MG PO (08:45)
[2021-02-09] MEDS ORDERED: RISPERDAL2 MG PO (08:45)
[2021-02-09 09:01] VITALS: BP 143/74
--- NOTE | 2021-02-09 09:48 | NUR ---
899 ABIODUN recieved a call from Dr. Hyatt and Nurse Jewel concerning Pt's discharge. ABIODUN informed the Pt had not given the name of the motel she was wanted a taxi to. Jewel informed the Pt was saying that she agreed to go to [facility]. Pt initially declined this facility (see prior note). 919 SW was able to speak with the Pt concerning the matter. Pt informed she spoke with Didi at [facility] yesterday evening. During this call Pt arranged to go the facility. ABIODUN informed this would need to be verified. 934 SW called [facility] and spoke with Didi concernin the matter. Didi confirmed speaking with Pt and agreeing to accept the Pt. Didi stated she could pick the Pt up today between 1300 and 1400. Didi also stated she would schedule the Pt appointments with Dr. Siu for psychiatry and Dr. Hay-PCP.
[2021-02-09 09:54] VITALS: BP 122/54
[2021-02-09] MEDS ORDERED: OMEPRAZOLE40 MG PO (09:57)
--- NOTE | 2021-02-09 15:48 | NUR ---
CARE ASSUMED AT 0700, PATIENT IN BED SLEEPING, CALM AND COOPERATIVE, ALERT AND ORIENTED X4, VSS, AMBULATE WITH STEADY GAIT, ACTIVE BOWEL SOUND, LUNGS CLEAR, SHE GOT DISCHARGED TO [facility] 15:40
--- NOTE | 2021-02-10 22:57 | D ---
[facility] [place] [address] DISCHARGE SUMMARY Name: JUAN CORTEZ Room #: 520A-A [facility] IN M.R.#: [id number] Admission: 02/01/21 Attend Phys: Oren Lyle DO Discharge: 02/09/21 Date of : 46 Report #: [id number] THIS REPORT FOR: cc: FAM - No family physician/PCP FAM - No family physician/PCP Oren Lyle DO ~ DATE OF SERVICE: 02/09/2021 INPATIENT PSYCHIATRIC DISCHARGE SUMMARY ATTENDING PSYCHIATRIST: Oren Lyle DO SET UP TECHNICIAN: Moises Sharma MD DISCHARGE DIAGNOSES: Schizophrenia; mild neurocognitive disorder; unspecified depression, improved. The patient is discharging to the [facility]. Psychiatric and medical care by [facility], they use Dr. Jer Noel, the psychiatrist. DIET: Regular. ACTIVITY LEVEL: As tolerated. No alcohol, no illicit drugs. DISCHARGE MEDICATIONS: Ferrous sulfate 325 mg oral daily for supplementation, atorvastatin 40 mg oral at bedtime for hyperlipidemia, gabapentin 300 mg oral 3 times a day for pain of neuropathy, duloxetine 30 mg oral daily for depression, risperidone 2 mg oral twice daily for psychosis, pantoprazole 40 mg oral in the morning for GERD. Medications were called in to the [facility]. LABORATORY DATA: Significant laboratories this admission: Hematology: H and H 11.5 and 35.6. White count 7.8, platelet count 354. On 02/02: Sodium 144, potassium 4.4, chloride 109, bicarbonate 27, anion gap 8. BUN 22, creatinine 1.0. Estimated GFR 55. Glucose 104. A1c 5.6. Calcium 9.0, magnesium 2.4. Iron 40, TIBC 252, percent sat 16, ferritin 45, total bilirubin 0.2. Triglycerides 171, cholesterol 266, LDL 173, HDL 59. Urinalysis was done in 2019. COVID-19 rapid test was negative this admission. REASON FOR ADMISSION: Back on 02/01 or so, a 70-year-old female, sent over from [facility]. Apparently the patient had called 911, was found to be paranoid, irrational in the ER. She has been having digestive system discomfort. She was referred for psychiatric admission. [address] [address] DISCHARGE SUMMARY Name: JUAN CORTEZ Room #: [address] [place] [address] [place] [facility].#: [id number] Admission: 02/01/21 Attend Phys: Oren Lyle DO Discharge: 02/09/21 Date of : 46 Report #: [id number] HOSPITAL COURSE: The patient was admitted to Geriatric Psychiatry Unit. [facility] Mental Status Examination was done. The patient scored 25/30. Initially, she was loud, belligerent, irrational, but then in couple days with taking risperidone and she was much more reasonable. We got into a bit of a back and forth over where she would be discharged to, initially she refused residential care facility placement on the day of discharge when we are going to send her to a motel. She had actually last minute arranged with the process improvement manager of [facility] to go there, so we rearranged the discharge specifications so that could happen. On day of discharge, the patient was not suicidal, homicidal. PHYSICAL EXAMINATION: VITAL SIGNS: On day of discharge is as follows: Temperature 36.1, pulse 76, respirations 20, BP 122/54, O2 sat 94%. MUSCULOSKELETAL: Wears glasses. Fair grooming, long hair. Normal gait and station. MENTAL STATUS EXAMINATION: This is a well-developed female, appearing stated age. BMI 26.5. Attention fair. Concentration fair. Speech normal rate, volume and tone. Thought process: Linear- goal directed. Thought content: Focused on discharge. Mood and affect okay, congruent, euthymic. Denied SI, HI. denied hoplesness, denied helplessness Denied auditory, visual or tactile hallucinations. Memory not formally tested day of discharge. Insight and judgment fair. Fund of knowledge: Not greater than average. Prognosis for this patient is fair to guarded and will depend on whether she progresses from mild neurocognitive disorder to major neurocognitive disorder. Also, her compliance with antipsychotic medications. We will also influence whether she is likely to progress to dementia as noncompliance schizophrenics have been shown to decline much more precipitously in this regard. <ELECTRONICALLY SIGNED> By: Oren Lyle DO 02/10/21 [id number] 21 45 Oren Lyle DO /nt
== END 2021-02-09 15:40 | DRG 885 ==
LOC: SBH 18:17
PROVIDERS: Internal Medicine; ADMIT Psychiatry & Neurology Psychiatry; ATTEND Psychiatry & Neurology Psychiatry
DX: F20.9 Schizophrenia, unspecified (principal); F03.91 Unspecified dementia, unspecified severity, with behavioral disturbance; F32.9 Major depressive disorder, single episode, unspecified; E78.5 Hyperlipidemia, unspecified; G62.9 Polyneuropathy, unspecified; K21.9 Gastro-esophageal reflux disease without esophagitis; Z60.2 Problems related to living alone; K58.9 Irritable bowel syndrome, unspecified; G89.29 Other chronic pain; F41.9 Anxiety disorder, unspecified; R13.10 Dysphagia, unspecified; D50.9 Iron deficiency anemia, unspecified; Z79.899 Other long term (current) drug therapy; Z63.5 Disruption of family by separation and divorce; Z86.14 Personal history of Methicillin resistant Staphylococcus aureus infection; Z90.2 Acquired absence of lung [part of]; Z95.0 Presence of cardiac pacemaker
CPT/HCPCS: 10880

== ENCOUNTER 2021-02-10 02:41 | Emergency (ER) | payer MEDICARE, OTHER ==
[~2021-02-10] VITALS: Ht 177.8 cm; Wt 83.9 kg
[~2021-02-10 02:41] MED LIST changes: +IRON325 PO; +LIPITOR40 MG PO; +NEURONTIN 300M300 M2 PO; +OMEPRAZOLE40 MG PO
[2021-02-10 05:00] VITALS: BP 195/94
== END 2021-02-10 05:00 | disposition home or self-care (01) ==
LOC: ER 02:41
DX: F41.9 Anxiety disorder, unspecified (principal); F32.9 Major depressive disorder, single episode, unspecified; Z98.890 Other specified postprocedural states; Z79.899 Other long term (current) drug therapy